=== PATIENT | female | born 1995 ===

== ENCOUNTER 2017-04-30 08:20 | Outpatient (CLI) | payer OTHER ==
--- NOTE | 2017-05-02 10:32 | Magnetic Resonance Report ---
MRI OF THE BRAIN AND PITUITARY WITHOUT AND WITH CONTRAST: 04/30/17 CLINICAL: Elevated prolactin levels. COMPARISON: None. TECHNIQUE: Sagittal T1, axial FLAIR and T2 whole brain sequences plus sagittal, coronal and axial thin slice postcontrast T1 pituitary sequences on a 1.5 Miguelina magnet. 14cc of Multihance was injected intravenously in divided doses for the contrast portion of the exam which included a dynamic thin section coronal and sagittal images of the 2 Afshin.. Consent was obtained prior to the administration of contrast. FINDINGS: The ventricles and sulci are normal for age. No restricted diffusion. No abnormal signal on any sequences. Normal size, shape and position of the pituitary gland. No abnormal focal enhancement or lack of enhancement. The suprasellar cistern, optic chiasm and infundibulum of the pituitary gland are normal. The cavernous sinuses are normal. IMPRESSION: Normal MRI of the brain and pituitary.
== END 2017-04-30 08:21 | disposition home or self-care (01) ==
LOC: SPVIMAG 08:20
PROVIDERS: ATTEND Internal Medicine
DX: E22.1 Hyperprolactinemia (principal); E22.9 Hyperfunction of pituitary gland, unspecified
CPT/HCPCS: 70553; A9577